=== PATIENT | female | born 1990 | race Caucasian/White ===

== ENCOUNTER 2017-06-27 07:29 | Emergency (ER) | payer SELFPAY ==
[~2017-06-27] VITALS: Ht 162.6 cm; Wt 54.5 kg
[~2017-06-27 07:29] MED LIST: SULF-154 PO
[2017-06-27 07:34] VITALS: BP 114/60; PULSE 58; RESP 16; TEMP 98.4; O2SAT 100
[2017-06-27] MEDS ORDERED: PRED20 PO (07:51)
[2017-06-27] MEDS ORDERED: FAMO1TAB37 PO (07:51)
[2017-06-27] MEDS ORDERED: DIPH25CA PO (07:51)
--- NOTE | 2017-06-27 07:51 | PD ---
HPI Chief Complaint: Skin Problem Time Seen by Provider: 07:41 Travel History International Travel<30 days: No Contact w/Intl Traveler<30days: No Traveled to known affect area: No History of Present Illness HPI Patient is a 27-year-old female who presents to emergency room with complaints of 4 days of bilateral mild to moderate elbow pruritus as well as rash. Patient is unsure if she came into contact with with any chemicals while at work , denies any new lotions or creams or perfumes or detergents. Patient denies any fevers or chills, reports that she has never had a reaction like this in the past. Patient reports increased pruritus to bilateral elbows, patient reports that she cannot stop itching her elbows. PFSH Past Medical History Medical History: Denies Significant Hx Diminished Hearing: No Immunizations Current: Yes : 0 Past Surgical History Surgical History: No Previous Surgery Social History Alcohol Use: Yes (OCC) Tobacco Use: Yes (OCC VAPING) Substance Use: No Allergies-Medications (Allergen,Severity, Reaction): Coded Allergies: penicillin G (Unverified Allergy, Severe, SWELLING, 06/27/17) acetaminophen (Unverified Adverse Reaction, Severe, Dizziness, 06/27/17) DIZZY, NAUSEA propoxyphene (Unverified Adverse Reaction, Severe, Dizziness, 06/27/17) DIZZY, NAUSEA Reported Meds & Prescriptions Reported Meds & Active Scripts Active No Active Prescriptions or Reported Medications Review of Systems General / Constitutional: No: Fever Eyes: No: Visual changes HENT: No: Headaches Cardiovascular: No: Chest Pain or Discomfort Respiratory: No: Shortness of Breath Gastrointestinal: No: Abdominal Pain Genitourinary: No: Dysuria Musculoskeletal: No: Pain Skin: Positive Rash, Positive Itching, Positive Dryness Neurologic: No: Weakness Psychiatric: No: Depression Endocrine: No: Polydipsia Hematologic/Lymphatic: No: Easy Bruising Physical Exam Narrative GENERAL: Well-nourished, well-developed patient. SKIN: Focused skin assessment warm/dry. HEAD: Normocephalic. EYES: No scleral icterus. No injection or drainage. NECK: Supple, trachea midline. No JVD or lymphadenopathy. CARDIOVASCULAR: Regular rate and rhythm without murmurs, gallops, or rubs. RESPIRATORY: Breath sounds equal bilaterally. No accessory muscle use. GASTROINTESTINAL: Abdomen soft, non-tender, nondistended. MUSCULOSKELETAL: No cyanosis, or edema. Patient with b/l nonraised, non erythematous rash to elbows, no petechiae or purpura, no streaking BACK: Nontender without obvious deformity. No CVA tenderness. Data Data Last Documented VS Vital Signs Date Time Temp Pulse Resp B/P (MAP) Pulse Ox O2 Delivery O2 Flow Rate FiO2 06/27/17 07:34 98.4 58 16 114/60 (78) 100 Room Air [facility] Medical Decision Making Medical Screen Exam Complete: Yes Emergency Medical Condition: Yes Medical Record Reviewed: Yes Interpretation(s) Vital Signs Date Time Temp Pulse Resp B/P (MAP) Pulse Ox O2 Delivery O2 Flow Rate FiO2 06/27/17 07:34 98.4 58 16 114/60 (78) 100 Room Air Differential Diagnosis Differential includes contact dermatitis versus psoriasis Narrative Course 27-year-old female who presents to emergency room with complaints of rash to bilateral elbows which she noticed 4 days ago. Patient reports increased pruritus to the area, patient denies any recent change of lotions or perfumes or detergents. She does work with chemicals at work, she may have put her elbows on the chemicals. Patient with no signs of petechiae or purpura to her elbows, no signs of infection. Patient with most likely a dermatitis which is not infectious in nature. We'll treat with steroids, Benadryl as well as Pepcid. 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 Diagnosis Primary Impression: Dermatitis Patient Instructions: General Instructions Additional Instructions: Please follow-up with strip mine supervisor as soon as possible Please follow-up with your primary care doctor Return to the emergency room if symptoms worsen or progress Return to the emergency room as needed Med/Other Pt SpecificInfo: Prescription(s) given Scripts Diphenhydramine (Diphenhydramine) 25 Mg Cap 50 MG PO Q6H Y for ALLERGIES for 5 Days, #40 CAP 0 Refills Prov: Verona Enriquez DO 06/27/17 Famotidine (Pepcid) 20 Mg Tab 20 MG PO BID for 5 Days, #10 TAB 0 Refills Prov: Verona Enriquez DO 06/27/17 Prednisone (Prednisone) 20 Mg Tab 20 MG PO BID for 5 Days, #10 TAB 0 Refills Prov: Verona Enriquez DO 06/27/17 Disposition: 01 DISCHARGE HOME Condition: Stable Verona Enriquez DO Jun 27, 2017 07:51
== END 2017-06-27 08:07 | disposition home or self-care (01) ==
LOC: PHED 07:29
DX: L30.9 Dermatitis, unspecified (principal)
CPT/HCPCS: 99283

== ENCOUNTER 2017-12-22 00:54 | Emergency (ER) | payer SELFPAY ==
[~2017-12-22] VITALS: Ht 162.6 cm; Wt 55.3 kg
[~2017-12-22 00:54] MED LIST changes: +DIPH25CA PO; +FAMO1TAB37 PO; +PRED20 PO; -SULF-154 PO
[2017-12-22 00:58] VITALS: BP 117/71; PULSE 71; RESP 16; TEMP 98.4; O2SAT 100
[2017-12-22] MEDS ORDERED: DOXY100C PO (02:10)
[2017-12-22] MEDS ORDERED: BACT800T5 PO (02:10)
--- NOTE | 2017-12-22 02:11 | PD ---
HPI Chief Complaint: Skin Problem Time Seen by Provider: 02:02 Travel History International Travel<30 days: No Contact w/Intl Traveler<30days: No Traveled to known affect area: No History of Present Illness HPI The patient is a 27-year-old female that noticed a progressively painful lump below her right eye for 2 weeks. This is not a hordeolum, it is well below that area. It bothers her when she puts her glasses on. She thought it was a pimple initially but it is much deeper than that. PFSH Past Medical History Diminished Hearing: No Immunizations Current: Yes Tetanus Vaccination: < 5 Years ?: Not LMP: 12/07/17 : 0 Social History Alcohol Use: Yes (OCC) Tobacco Use: Yes (OCC VAPING) Substance Use: No Allergies-Medications (Allergen,Severity, Reaction): Coded Allergies: penicillin G (Unverified Allergy, Severe, SWELLING, 06/27/17) acetaminophen (Unverified Adverse Reaction, Severe, Dizziness, 06/27/17) DIZZY, NAUSEA propoxyphene (Unverified Adverse Reaction, Severe, Dizziness, 06/27/17) DIZZY, NAUSEA Reported Meds & Prescriptions Reported Meds & Active Scripts Active Diphenhydramine (Diphenhydramine HCl) 25 Mg Cap 50 Mg PO Q6H PRN 5 Days Pepcid (Famotidine) 20 Mg Tab 20 Mg PO BID 5 Days Prednisone 20 Mg Tab 20 Mg PO BID 5 Days Review of Systems Except as stated in HPI: all other systems reviewed are Neg Physical Exam Narrative GENERAL: Well-nourished, well-developed patient in no apparent distress. Her vital signs are normal. SKIN: Focused skin assessment warm/dry. There is a 4 mm diameter painful lump below the right eye. It is not associated with a hordeolum, it is well below this area. It is not pointing and there is no pus present. There is only minimal erythema over this area. There is no fluctuance present. There is no blackhead associated with this feature. HEAD: Normocephalic. EYES: No scleral icterus. No injection or drainage. NECK: Supple, trachea midline. No JVD or lymphadenopathy. CARDIOVASCULAR: Regular rate and rhythm without murmurs, gallops, or rubs. RESPIRATORY: Breath sounds equal bilaterally. No accessory muscle use. GASTROINTESTINAL: Abdomen soft, non-tender, nondistended. MUSCULOSKELETAL: No cyanosis, or edema. BACK: Nontender without obvious deformity. No CVA tenderness. Data Data Last Documented VS Vital Signs Date Time Temp Pulse Resp B/P (MAP) Pulse Ox O2 Delivery O2 Flow Rate FiO2 12/22/17 00:58 98.4 71 16 117/71 (86) 100 MDM Medical Decision Making Medical Screen Exam Complete: Yes Emergency Medical Condition: Yes Medical Record Reviewed: Yes Differential Diagnosis Abscess, pimple, developing mole Narrative Course This does not appear as a pimple, no black it is present and there is no presentation of a pustule. This may be a developing mole. More likely however this may be a deep abscess that can be brought closer to the surface by warm compresses. He also will be given doxycycline and Septra to see if this cannot resolve the problem. If this does not resolve the problem this may be a developing mole and she will have to see a e business consultant. If this is an abscess and comes to the surface we can drain it here in the emergency department. Diagnosis Primary Impression: Facial abscess Additional Instructions: As we discussed, this is probably an abscess and warm compresses and antibiotics should help it. If it comes to the surface and we can drain it we will do so in the emergency department. If this is a developing mole this will simply get larger and you will need to see a e business consultant about this. Both antibiotics are twice daily for 10 days. Med/Other Pt SpecificInfo: Prescription(s) given Scripts Sulfamethoxazole-Trimethoprim (Bactrim DS) 800-160 Mg Tab 1 TAB PO BID for Infection, #20 TAB 0 Refills Prov: Kendell Srinivasan MD 12/22/17 Doxycycline Hyclate (Doxycycline Hyclate) 100 Mg Cap 100 MG PO BID for Infection, #20 CAP 0 Refills Prov: Kendell Srinivasan MD 12/22/17 Disposition: DISCHARGE HOME Condition: Stable Kendell Srinivasan MD Dec 22, 2017 02:11
[2017-12-22] MEDS ORDERED: DOXYCYCLINE HYCLATE 100 MG CAP PO ONE (02:15)
[2017-12-22] MEDS ORDERED: SULFAMETHOXAZOLE-TRIMETHOPRIM DS 800-160 MG TAB PO ONE (02:15)
== END 2017-12-22 02:32 | disposition home or self-care (01) ==
LOC: PHED 00:54
DX: L02.01 Cutaneous abscess of face (principal); Z72.0 Tobacco use
CPT/HCPCS: 99283